=== PATIENT | male | born 1950 | race Hispanic/Latino ===

== ENCOUNTER → 2018-10-09 | Day surgery (SDC) | payer MEDICARE ==
[2018-10-05 16:23] LABS: BASOPHILS # (AUTO) 0.1 (0.0-0.1); BASOPHILS % 0.5 % (0.0-1.0); EOSINOPHILS # (AUTO) 0.2 (0.0-0.4); EOSINOPHILS % 1.4 % (0.0-6.0); HEMATOCRIT 38.6 % (38.2-49.6); HEMOGLOBIN 12.2 g/dL (14.0-18.0); LYMPHOCYTES # (AUTO) 2.8 (1.0-3.2); LYMPHOCYTES % 21.7 % (18.0-39.1); MEAN CORPUSCULAR HEMOGLOBIN 26.3 pg (28-32); MEAN CORPUSCULAR HGB CONC 31.6 g/dL (31-35); MEAN CORPUSCULAR VOLUME 83.4 fL (81-99); MONOCYTES % 7.8 % (4.4-11.3); NEUTROPHILS # (AUTO) 8.9 (2.1-6.9); NEUTROPHILS % 68.1 % (38.7-80.0); PLATELET COUNT 237 x10e3/uL (140-360); RED BLOOD COUNT 4.63 x10e6/uL (4.3-5.7); RED CELL DISTRIBUTION WIDTH 13.7 % (11.7-14.4)
[~2018-10-09] MED LIST: ATORVASTATIN CA40 MG PO; BRIMONIDINE; BRIMONIDINE TART5 ML OP; CLONIDINE HCL0.1 MG PO; DIGOXIN250 MCG; FARXIGA 10MG; FENOFIBRATE160 MG PO; FENOFIBRIC 135 MG; FENTANYL CITRATE/PF 100MCG/2 ML INJ ONE; FLUOXETINE HCL20 MG PO; GABAPENTIN400 MG PO; GLUMETZA1000 MG; HUMALOG KWIKPEN; HUMALOG100 UNIT/1 SQ; HYOSCYAMINE SULFATE 0.5 MG/ML INJ ONE; INVOKAMET PO; KLOR-CON 1010 MEQ PO; LANTUS100 UNITS/ SC; LATANOPROST2.5 ML OP; LINZESS PO; LOSARTAN POTAS100 MG PO; LOSARTAN-HCTZ1 EAC2 PO; LOVAZA1 GM PO; LYRICA50 MG; METOPROLOL TART50 MG PO; MIDAZOLAM HCL 2 MG/2 ML VIAL ONE; MONTELUKAST SOD10 MG PO; OMEGA-31000 MG; OMEPRAZOLE40 MG PO; PROPOFOL IV EMULSION 10 MG/ML 50 ML VIAL ONE; TRAVATAN Z5 ML OP; TRESIBA SQ; VASCEPA PO; VISION VITAMIN1 EAC1 PO; VITAMIN D250000 UNIT PO; WARFARIN; WARFARIN SODIU7.5 MG PO
--- OUTSIDE RECORDS SUMMARY | 2018-10-09 05:23 | XMS REPORT ---
Author Author Suzan Jain Organization [employer] Address Unknown Phone Unavailable Care Team Providers Care Fleet Dispatch Manager Name Role Phone Suzan Jain Unavailable Allergies, Adverse Reactions, Alerts Substance Reaction Event Type N.K.D.A. Info Not Available Non Drug Allergy Problems Problem Type Condition Code Onset Dates Condition Status Assessment Carotid artery disease I77.9 Active Assessment Hypercholesterolemia E78.01 Active Problem Cardiac pacemaker Z95.0 Active Assessment Type II or unspecified type diabetes mellitus with unspecified complication, not stated as uncontrolled E11.8 Active Problem Carotid artery disease I77.9 Active Assessment Abnormal EKG R94.31 Active Problem Type II or unspecified type diabetes mellitus with unspecified complication, not stated as uncontrolled E11.8 Active Problem SANDRA (dyspnea on exertion) R06.09 Active Problem Preoperative clearance Z01.818 Active Problem Chronic atrial fibrillation I48.2 Active Problem Atherosclerosis of [place] artery of right lower extremity with intermittent claudication I70.211 Active Assessment Atherosclerosis of [place] artery of right lower extremity with intermittent claudication I70.211 Active Assessment Varicose veins of bilateral lower extremities with other complications I83.893 Active Problem 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 Assessment Cardiac pacemaker Z95.0 Active Problem Pacemaker generator end of life Z45.010 Active Problem Equivalent angina I20.8 Active Problem Varicose veins of bilateral lower extremities with other complications I83.893 Active Problem Persistent atrial fibrillation I48.1 Active Assessment Benign hypertensive heart disease 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 heart failure I11.9 Active Problem Mitral valve disorder I05.9 Active Assessment Persistent atrial fibrillation I48.1 Active Assessment SANDRA (dyspnea on exertion) R06.09 Active Problem Hypercholesterolemia E78.01 Active Problem Benign hypertensive heart disease 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 heart failure I11.9 Active Problem Abnormal EKG R94.31 Active Problem Atrial fibrillation I48.91 Active Medications Medication Code System Code Instructions Start Date End Date Status Dosage Warfarin Sodium [facility] 91528484875 7.5 MG Orally daily x tory Active 1 tablet Fenofibrate [facility] 09967009465 160 MG Orally Once a day Active 1 tablet with a meal Humalog [facility] 58134024642 100 UNIT/ML Subcutaneous tid qac Active 10 Metoprolol Tartrate [facility] 50596013942 100 mg Orally twice a day (bid) Active 1/2 half tablet Lovaza [facility] 49841890787 1 GM Orally Twice a day Active 2 capsules Atorvastatin Calcium [facility] 28039157740 40 mg Orally Once a day Active 1 tablet Clonidine HCl [facility] 06603501303 0.1 MG Orally as needed (prn) Active 1 tablet at bedtime Lyrica [facility] 23685307500 50 mg Orally once a day Active 1 capsule Amlodipine Besylate [facility] 28977964793 5 MG Orally Once a day Active 1 tablet Tresiba FlexTouch [facility] 86266766631 100 UNIT/ML Subcutaneous QAM Active 48 Losartan Potassium-HCTZ [facility] 34828409632 100-12.5 MG PO Once a day Active 1/2 half tablet Results No Known Results Summary Purpose [employer] Submission
--- OUTSIDE RECORDS SUMMARY | 2018-10-09 05:23 | XMS REPORT ---
Author Author Thao Jain Organization [employer] Address Unknown Phone Unavailable Care Team Providers Care Pantry Worker Name Role Phone Thao Jain CP Unavailable Allergies, Adverse Reactions, Alerts Substance Reaction Event Type N.K.D.A. Info Not Available Non Drug Allergy Problems Problem Type Condition Code Onset Dates Condition Status Assessment Carotid artery disease I77.9 Active Problem Cardiac pacemaker Z95.0 Active Assessment Hypercholesterolemia E78.01 Active Problem Carotid artery disease I77.9 Active Assessment Type II or unspecified type diabetes mellitus with unspecified complication, not stated as uncontrolled E11.8 Active Problem Type II or unspecified type diabetes mellitus with unspecified complication, not stated as uncontrolled E11.8 Active Problem SANDRA (dyspnea on exertion) R06.09 Active Problem Preoperative clearance Z01.818 Active Problem Chronic atrial fibrillation I48.2 Active Problem Atherosclerosis of [place] artery of right lower extremity with intermittent claudication I70.211 Active Assessment Cardiac pacemaker Z95.0 Active Assessment Benign hypertensive heart disease 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 heart failure I11.9 Active Problem 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 Assessment Abnormal EKG R94.31 Active Problem Pacemaker generator end of life Z45.010 Active Problem Equivalent angina I20.8 Active Problem Varicose veins of bilateral lower extremities with other complications I83.893 Active Problem Persistent atrial fibrillation I48.1 Active Assessment Equivalent angina I20.8 Active Problem Mitral valve disorder I05.9 Active Assessment Atrial fibrillation I48.91 Active Assessment SANDRA (dyspnea on exertion) R06.09 Active Problem Hypercholesterolemia E78.01 Active Problem Benign hypertensive heart disease 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 heart failure I11.9 Active Problem Abnormal EKG R94.31 Active Problem Atrial fibrillation I48.91 Active Medications Medication Code System Code Instructions Start Date End Date Status Dosage Lovaza ND 73465257144 1 GM Orally Twice a day Active 2 capsules Digoxin ND 33142531798 125 MCG Orally Once a day Active 1 tablet Lantus ND 65950218624 100 UNIT/ML Subcutaneous sliding scale Active 44 ml Lyrica [facility] 10166486207 50 mg Orally once a day Active 1 capsule Fenofibrate [facility] 56825206263 160 MG Orally Once a day Active 1 tablet with a meal Atorvastatin Calcium [facility] 24725626943 40 mg Orally Once a day Active 1 tablet Metoprolol Tartrate [facility] 00853042855 100 mg Orally twice a day (bid) Active 1/2 half tablet Warfarin Sodium [facility] 69887834016 7.5 MG Orally Once a day Active 1 tablet Humalog [facility] 46635403593 100 UNIT/ML Subcutaneous Active not defined Clonidine HCl [facility] 08620622754 0.1 MG PO twice a day (bid) Active 1 tablet Losartan Potassium-HCTZ [facility] 94905134488 100-12.5 MG PO Once a day Active 1/2 half tablet Vital Signs Date/Time: Dec 21, 2016 BMI 31.15 Index Weight 193 lbs Height 66 in Temperature 97.3 F Cardiac Monitoring Heart Rate 60 /min Blood Pressure Diastolic 70 mm Hg Blood Pressure Systolic 130 mm Hg Results No Known Results Summary Purpose [employer] Submission
--- OUTSIDE RECORDS SUMMARY | 2018-10-09 05:23 | XMS REPORT ---
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 Assessment Cardiac pacemaker Z95.0 Active Problem Pacemaker generator end of life Z45.010 Active Problem Equivalent angina I20.8 Active Problem Varicose veins of bilateral lower extremities with other complications I83.893 Active Problem Persistent atrial fibrillation I48.1 Active Assessment Varicose veins of bilateral lower extremities with other complications I83.893 Active Problem Mitral valve disorder I05.9 Active Assessment Benign hypertensive heart disease 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 heart failure I11.9 Active Assessment Chronic atrial fibrillation I48.2 Active Problem Hypercholesterolemia E78.01 Active Problem Benign hypertensive heart disease 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 heart failure I11.9 Active Problem Abnormal EKG R94.31 Active Problem Atrial fibrillation I48.91 Active Medications Medication Code System Code Instructions Start Date End Date Status Dosage Fenofibrate [facility] 97198783586 160 MG Orally Once a day Active 1 tablet with a meal Lovaza ND 65064960075 1 GM Orally Twice a day Active 2 capsules Amlodipine Besylate [facility] 28842963604 5 MG Orally Once a day Active 1 tablet Warfarin Sodium [facility] 09109420930 7.5 MG Orally daily x monday Active 1 tablet Atorvastatin Calcium [facility] 95274935557 40 mg Orally Once a day Active 1 tablet Tresiba FlexTouch ND 23111559022 100 UNIT/ML Subcutaneous QAM Active 48 Metoprolol Tartrate [facility] 95822198743 100 mg Orally twice a day (bid) Active 1/2 half tablet Clonidine HCl [facility] 29706357468 0.1 MG Orally as needed (prn) Active 1 tablet at bedtime Losartan Potassium-HCTZ [facility] 85293372213 100-12.5 MG PO Once a day Active 1/2 half tablet Humalog [facility] 02264237486 100 UNIT/ML Subcutaneous tid qac Active 10 Lyrica ND 03915314480 50 mg Orally once a day Active 1 capsule Vital Signs Date/Time: January 22, 2018 BMI 32.12 Index Weight 199 lbs Height 66 in Temperature 97.3 F Cardiac Monitoring Heart Rate 60 /min Blood Pressure Diastolic 76 mm Hg Blood Pressure Systolic 118 mm Hg Results No Known Results Summary Purpose [employer] Submission
--- OUTSIDE RECORDS SUMMARY | 2018-10-09 05:23 | XMS REPORT | Continuity of Care Document ---
Author Author [facility] Interface Address Unknown Phone Unavailable Problems Problem Status Onset Date Classification Date Reported Comments Source DX: R10.11=RIGHT UPPER QUADRANT PAIN Active 10/01/2018 [facility] DX: R59.9=ENLARGED LYMPH NODES, UNSPECIF Active 09/13/2018 [facility] DX: R16.0=HEPATOMEGALY, NOT ELSEWHERE CL Active 03/07/2018 [facility] R59.9=ENLARGED LYMPH NODES, UNSPECIFIED Active 02/21/2018 [facility] DX: N18.3=CHRONIC KIDNEY DISEASE, STAGE Active 02/09/2018 [facility] J45.901 Active 02/02/2018 [facility] Pulsatile tinnitus, right ear 01/31/2018 05/02/2018 [facility] H93.A1, H90.3 Active 01/16/2018 [facility] DX:H93.A1=PULSATILE TINNITUS, RIGH Active 12/28/2017 [facility] I73.9 PERIPHERAL VASCULAR DISEASE, UNSPE Active 09/29/2016 [facility] Atrial fibrillation Active Problem 09/20/2014 [facility] HTN heart dis benign, without CHF Active Problem 09/20/2014 [facility] Chest pain Active Problem 09/20/2014 [facility] Hypercholesterolemia Active Problem 09/20/2014 [facility] Diabetes with unspecified complication, type II or unspecified type, not stated as uncontrolled Active Problem 09/20/2014 [facility] Cardiac pacemaker in situ Active Problem 09/20/2014 [facility] Mitral valve disorders Active Problem 09/20/2014 [facility] Carotid artery disease Active Diagnosis 07/11/2018 [facility] Cardiac pacemaker Active Problem 07/11/2018 [facility] Hypercholesterolemia Active Diagnosis 07/11/2018 [facility] J[facility] Type II or unspecified type diabetes mellitus with unspecified complication, not stated as uncontrolled Active Diagnosis 07/11/2018 [facility] Jain SANDRA Active Problem 07/11/2018 [facility] Preoperative clearance Active Problem 07/11/2018 [facility] Chronic atrial fibrillation Active Problem 07/11/2018 [facility] 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 Active Problem 07/11/2018 [facility] Benign hypertensive heart disease 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 heart failure Active Diagnosis 07/11/2018 Thao Jain Status post ablation of incompetent vein using laser Active Problem 07/11/2018 [facility] Abnormal EKG Active Diagnosis 07/11/2018 [facility] Pacemaker generator end of life Active Problem 07/11/2018 [facility] Equivalent angina Active Problem 07/11/2018 [facility] Varicose veins of bilateral lower extremities with other complications Active Problem 07/11/2018 [facility] Jain Persistent atrial fibrillation Active Problem 07/11/2018 [facility] Mitral valve disorder Active Problem 07/11/2018 [facility] Atrial fibrillation Active Problem 07/11/2018 Thao Jain Type 2 diabetes mellitus with diabetic peripheral angiopathy without gangrene, without long-term current use of insulin Active Problem 11/10/2016 [facility] Ingrown toenail Active Problem 11/10/2016 [facility] Peripheral arterial disease Active Problem 11/10/2016 [facility] Diabetic mononeuropathy associated with type 2 diabetes mellitus Active Problem 11/10/2016 [facility] Sensorineural hearing loss, bilateral 05/02/2018 [facility] Abnormal findings on diagnostic imaging of other specified body structures 04/17/2018 [facility] Occlusion and stenosis of left carotid artery 04/17/2018 [facility] PERIPHERAL VASCULAR DISEASE, UNSPECIFIED Active [facility] PULSATILE TINNITUS, RIGHT EAR Active [facility] SENSORINEURAL HEARING LOSS, BILATERAL Active [facility] COUGH Active [facility] SHORTNESS OF BREATH Active [facility] UNSPECIFIED ASTHMA WITH (ACUTE) EXACERBA Active [facility] SOLITARY PULMONARY NODULE Active [facility] Medications Medication Details Route Status Patient Instructions Ordering Provider Order Date Source Amlodipine Besylate 1 tablet Orally Active 5 MG Orally Once a day Cristobal 06/14/2017 Thao Jain Clonidine HCl 1 tablet Orally Active 0.1 MG Orally Once a day Cristobal Jain Warfarin Sodium 1 tablet Orally Active 7.5 MG Orally Once a day Cristobal Jain Lovaza 2 capsules Orally Active 1 GM Orally Twice a day Cristobal Jain Digoxin 1 tablet Orally Active 125 MCG Orally Once a day Cristobal Jain Lantus 44 ml Subcutaneous Active 100 UNIT/ML Subcutaneous sliding scale Cristobal Jain Lyrica 1 capsule Orally Active 50 mg Orally once a day Cristobal Jain Fenofibrate 1 tablet with a meal Orally Active 160 MG Orally Once a day Cristobal Jain Atorvastatin Calcium 1 tablet Orally Active 40 mg Orally Once a day Cristobal Jain Metoprolol Tartrate 1/2 half tablet Orally Active 100 mg Orally twice a day (bid) Cristobal Jain Warfarin Sodium 1 tablet Orally Active 7.5 MG Orally Once a day Cristobal Jain Humalog 10 Subcutaneous Active 100 UNIT/ML Subcutaneous tid qac Cristobal Jain Clonidine HCl 1 tablet at bedtime Orally Active 0.1 MG Orally as needed (prn) Cristobal Jain Losartan Potassium-HCTZ 1/2 half tablet PO Active 100-12.5 MG PO Once a day Cristobal Jain Warfarin Sodium 1 tablet Orally Active 7.5 MG Orally daily x monday Cristobal Jain Digoxin 1 tablet Orally Active 250 MCG Orally QOD Cristobal Jain Amlodipine Besylate 1 tablet Orally Active 5 MG Orally Once a day Cristobal Jain Tresiba FlexTouch 48 Subcutaneous Active 100 UNIT/ML Subcutaneous QAM Cristobal Jain Metoprolol Tartrate 1 tablet Orally Active 100 mg Orally BID Cristobal Jain Digoxin 1 tablet Orally Active 0.25 MG Orally Once a day Irvingsusu Jain Allergies, Adverse Reactions, Alerts Substance Category Reaction Severity Reaction type Status Date Reported Comments Source N.K.D.A. Adverse Reaction Info Not Available Adverse Reaction Active 01/22/2018 [facility] Jain Immunizations Immunization Date Given Site Status Last Updated Comments Source Results Order Name Results Value Reference Range Date Interpretation Comments Source Chest wo contrast CT Chest wo contrast CT CT CHEST WITHOUT CONTRAST: HISTORY: Lymph node enlargement. TECHNIQUE: Multislice axial acquisitions were done through the chest without contrast. Sagittal and coronal reformatted images were also obtained. DLP 354 mGycm. FINDINGS: There is a mildly enlarged lymph node in the pretracheal region, measuring about 2.5 cm just above the niaf. There is no significant change compared to the previous CT on 02/09/2018. There is no other significant mediastinal or hilar lymph node enlargement. There is no evidence of extrathoracic lymph node enlargement. Atherosclerotic calcifications in the aorta and coronary arteries are noted. Right subclavian pacemaker lead is seen in satisfactory position There are no significant pulmonary or pleural abnormalities. There are no significant osseous abnormalities. There are no significant abnormalities in the visible upper abdomen. IMPRESSION: 1. Stable nonspecific pretracheal adenopathy. 2. No other significant intrathoracic or extrathoracic lymph node enlargement. 3. No other acute CT abnormalities of the chest [id number] 09/17/2018 - - Read by: Saurabh Winters MD Dictated Date/time: 09/17/18 16:49 Electronically Signed by: Saurabh Winters MD 09/17/18 16:57 FINAL REPORT [facility] Retroperitoneal complete w Doppler US Retroperitoneal complete w Doppler US Patient Name: ANSON FRANK : 1950 Age: 67 years, Male MR: [id number] Study: Bladder US, Retroperitoneal complete w Doppler US 04/02/2018 3:47 PM CDT Examination: Renal ultrasound with Doppler. Bladder ultrasound Indication: Chronic renal disease Clinical information: N18.3 Chronic kidney disease, stage 3 (moderate) - N18.3 Chronic kidney disease, stage 3 (moderate). Comparison: None Technique: Transverse and longitudinal images of the kidneys and bladder were obtained. Doppler evaluation of the renal arteries was performed. Findings: Right kidney: Length 10.6 x 5.28 x 5.33 cm. Cortex 1.74 cm. Echogenicity: Normal Collecting system: No echogenic calculi. No hydronephrosis. Cyst/mass: None RIGHT Kidney Doppler MRA/AO Ratio (<3.5): 1.29 MRA (hilum): 94.3 AO: 73.3 Resistive Index (<7.0) Superior: 0.68 Mid: 0.78 Inferior: 0.8 Left kidney: Length 11.1 x 4.94 x 4.17 cm. Cortex 1.65 cm. Echogenicity: Normal Collecting system: No echogenic calculi. No hydronephrosis. Cyst/mass: None LEFT Kidney Doppler MRA/AO Ratio (<3.5): 0.74 MRA (hilum): 54.4 AO: 73.3 Resistive Index (<7.0) Superior: 0.8 Mid: 0.76 Inferior: 0.69 Urinary bladder Normal contour. The ureteral jets are visualized bilaterally. Prevoid Volume 75.5 cc Postvoid Volume 12.8 cc Aorta: Proximal: 2.34 cm. Mid 1.74 cm. Distal 1.66 cm. Aortic bifurcation is poorly visualized. No aneurysm is identified. Inferior vena cava: Patent. 1.63 cm. Ascites: None IMPRESSION: No acute radiographic abnormality. SL: [id number] 04/02/2018 - - Read by: Zion Mahmood MD Dictated Date/time: 04/03/18 07:25 Electronically Signed by: Zion Mahmood MD 04/03/18 07:46 FINAL REPORT [facility] Bladder US Bladder US Patient Name: ANSON FRANK : 1950 Age: 67 years, Male MR: [id number] Study: Bladder US, Retroperitoneal complete w Doppler US 04/02/2018 3:47 PM CDT Examination: Renal ultrasound with Doppler. Bladder ultrasound Indication: Chronic renal disease Clinical information: N18.3 Chronic kidney disease, stage 3 (moderate) - N18.3 Chronic kidney disease, stage 3 (moderate). Comparison: None Technique: Transverse and longitudinal images of the kidneys and bladder were obtained. Doppler evaluation of the renal arteries was performed. Findings: Right kidney: Length 10.6 x 5.28 x 5.33 cm. Cortex 1.74 cm. Echogenicity: Normal Collecting system: No echogenic calculi. No hydronephrosis. Cyst/mass: None RIGHT Kidney Doppler MRA/AO Ratio (<3.5): 1.29 MRA (hilum): 94.3 AO: 73.3 Resistive Index (<7.0) Superior: 0.68 Mid: 0.78 Inferior: 0.8 Left kidney: Length 11.1 x 4.94 x 4.17 cm. Cortex 1.65 cm. Echogenicity: Normal Collecting system: No echogenic calculi. No hydronephrosis. Cyst/mass: None LEFT Kidney Doppler MRA/AO Ratio (<3.5): 0.74 MRA (hilum): 54.4 AO: 73.3 Resistive Index (<7.0) Superior: 0.8 Mid: 0.76 Inferior: 0.69 Urinary bladder Normal contour. The ureteral jets are visualized bilaterally. Prevoid Volume 75.5 cc Postvoid Volume 12.8 cc Aorta: Proximal: 2.34 cm. Mid 1.74 cm. Distal 1.66 cm. Aortic bifurcation is poorly visualized. No aneurysm is identified. Inferior vena cava: Patent. 1.63 cm. Ascites: None IMPRESSION: No acute radiographic abnormality. SL: [id number] 04/02/2018 - - Read by: Zion Mahmood MD Dictated Date/time: 04/03/18 07:25 Electronically Signed by: Zion Mahmood MD 04/03/18 07:46 FINAL REPORT [facility] PET CT Lymphoma diagnosis PET CT Lymphoma diagnosis Patient Name: ANSON FRANK : 1950; Age: 67 years Male MR: [id number] Study: PET CT Lymphoma diagnosis 03/17/2018 11:00 AM CDT Clinical Indication: R59.9 Enlarged lymph nodes, unspecified; R91.1 Solitary pulmonary nodule--Diagnosis Dose: VPV=600.25 mGy*cm ; CTDIvol=10.34 mGy COMPARISON: February 09, [address] TECHNIQUE: Positron emission tomography imaging is performed 45 minutes after intravenous administration of 14.3 mCi of F-18 labeled FDG, from the skull base to the mid thigh region. PET images were reviewed in the axial, coronal and sagittal orthogonal projections. Non-contrast enhanced CT imaging was for performed for attenuation correction, localization and limited diagnostic purposes. INJECTION SITE: Right arm injection site Serum glucose: 116 mg/dL. FINDINGS: NECK: There are no foci of abnormal metabolic activity. CHEST: Subcentimeter AP window, upper and lower paratracheal lymph nodes. Central lower paratracheal lymph node complex, image 79, 2.6 cm, SUV 1.6. Cardiomegaly with coronary artery calcifications. ABDOMEN: There are no foci of abnormal metabolic activity. PELVIS: There are no foci of abnormal metabolic activity. Sigmoid diverticulosis. BONES: There are no foci of abnormal metabolic activity. Physiologic F-18 labeled FDG distribution is noted in the brain, heart, liver, spleen, gastrointestinal and genitourinary tracts. IMPRESSION: 1. Mediastinal lymphadenopathy with SUV up to 1.6. FDG PET is known to show little to no uptake in malignant disease with low metabolic activity including bronchoalveolar carcinoma (renamed adenocarcinoma in situ, minimally invasive adenocarcinoma) or carcinoid. There are studies showing malignant pleural mesothelioma with SUV values ranging from less than 1 to greater than 12 depending on metabolic activity of the tumor. SL: [id number] 03/17/2018 - - Read by: Dima Dowell MD Dictated Date/time: 03/19/18 11:11 Electronically Signed by: Dima Dowell MD 03/19/18 11:21 FINAL REPORT [facility] Liver US Liver US Patient Name: ANSON FRANK : 1950; Age: 67 years Male MR: [id number] Study: Liver US 03/15/2018 8:26 AM CDT Clinical Indication: - R16.0 Hepatomegaly, not elsewhere classified. COMPARISON: None TECHNIQUE: Grayscale and limited color sonographic evaluation of the right upper quadrant of the abdomen and gallbladder region was performed with standard technique. FINDINGS: LIVER: The visualized liver shows normal contour, size, and morphology. There is increased parenchymal echotexture. BILE DUCTS: The intrahepatic and extrahepatic bile ducts are not dilated. The common bile duct measures 3.8 mm. The distal common bile duct is not well seen. GALLBLADDER: There are no gallstones, gallbladder sludge, pericholecystic fluid or wall thickening. PANCREAS: The pancreas body is normal. The head and tail are obscured by bowel gas. KIDNEY: The right kidney measures 10.7 x 5.1 x 4.6 cm. The renal cortical thickness measures 1.6 cm. There is normal renal contour and morphology, with normal parenchymal echotexture. There is no hydronephrosis. ASCITES: There is no right upper quadrant abdominal ascites. IMPRESSION: Hepatocellular disease most likely due to fatty infiltration. SL: [id number] 03/15/2018 - - Read by: Dima Dowell MD Dictated Date/time: 03/15/18 08:58 Electronically Signed by: Dima Dowell MD 03/15/18 09:01 FINAL REPORT [facility] Chest wo contrast CT Chest wo contrast CT Clinical Indication: - R05 Cough, R06.02 Shortness of breath, J45.901 Unspecified asthma with (acute) exacerbation; Comparison: None TECHNIQUE: Sequential trans-axial images were obtained thru the chest and upper abdomen without intravenous contrast. Coronal and sagittal reconstructions were obtained. Dose: ZZZ=306 mGy-cm FINDINGS: LOWER NECK AND SOFT TISSUES: No enlarged lymph node is seen. Right subclavian pacing device leads are in the right heart. MEDIASTINUM: Normal size of the heart is noted. Coronary artery calcifications are noted. No pericardial effusion is identified. The thoracic aorta is normal in caliber. Precarinal soft tissue density on series 3, image 36 measures 2.6 x 1.6 cm. No hilar or axillary lymphadenopathy is noted. PULMONARY PARENCHYMA: No focal consolidation or pleural effusion is seen. No pulmonary nodule or mass is apparent. No pneumothorax is identified UPPER ABDOMEN: Visualized upper abdominal structures are unremarkable in appearance. MUSCULOSKELETAL: No acute osseous abnormality is seen. No destructive lytic or blastic osseous lesion is noted. IMPRESSION: 1. No acute abnormality of the chest. 2. Indeterminate precarinal soft tissue density measuring 2.6 x 1.6 cm. PET/CT or short-term follow-up CT chest with contrast are available for further evaluation. 3. Coronary artery calcifications. SL: [id number] 02/09/2018 - - Read by: Wilfrid Hidalgo MD Dictated Date/time: 02/09/18 14:06 Electronically Signed by: Wilfrid Hidalgo MD 02/09/18 14:12 FINAL REPORT [employer] CHEM PANEL eGFR 47 mL/min/1.73m2 01/24/2018 Result Comment: The eGFR is calculated using the CKD-EPI formula. In most young, healthy individuals the eGFR will be >90 mL/min/1.73m2. The eGFR declines with age. An eGFR of 60-89 may be normal in some populations, particularly the elderly, for whom the CKD-EPI formula has not been extensively validated. Use of the eGFR is not recommended in the following populations: Individuals with unstable creatinine concentrations, including patients and those with serious co-morbid conditions. Patients with extremes in muscle mass or diet. The data above are obtained from the National Kidney Disease Education Program (NKDEP) which additionally recommends that when the eGFR is used in patients with extremes of body mass index for purposes of drug dosing, the eGFR should be multiplied by the estimated BMI. [employer] CHEM PANEL POC Creatinine 1.5 mg/dL 0.5 - 1.4 01/24/2018 [facility] Neck CTA Neck CTA Clinical Indication: - H90.3 Sensorineural hearing loss, bilateral Comparison: None TECHNIQUE: Sequential trans-axial images of the neck were obtained with a multi- detector helical CT after iodinated contrast administration. Coronal and sagittal reconstructions and were obtained, along with 3D post-processing maximum intensity projection imaging for exam interpretation. CONTRAST: 75 cc of IV Visipaque contrast material was used for the exam. CT Radiation Dose DLP 323 mGy-cm FINDINGS: CTA NECK: VASCULAR EVALUATION: The origins of the great vessels and visualized upper thoracic aortic arch are unremarkable. The right common carotid artery is widely patent. The right carotid bulb region is unremarkable. The internal and external carotid arteries on the right are widely patent. The right cervical internal carotid artery is widely patent. The left common carotid artery is widely patent. The left carotid bulb region is unremarkable. The internal and external carotid arteries on the left are widely patent. The left cervical internal carotid artery is widely patent. Bilateral cervical segments of the vertebral arteries are widely patent. The source images show no evidence of dissections. If there is further concern, recommend conventional angiography for complete assessment. Any reported ICA stenosis directly references the distal internal carotid diameter as the denominator for stenosis measurement. NON-VASCULAR STRUCTURES: The nonvascular soft tissues of the neck are unremarkable. IMPRESSION: Unremarkable CT angiography neck. No significant stenosis by NASCET criteria. SL: [id number] 01/24/2018 - - Read by: Paul Sullivan MD Dictated Date/time: 01/24/18 13:58 Electronically Signed by: Paul Sullivan MD 01/24/18 14:12 FINAL REPORT [facility] Internal Auditory Canal wo contrast CT Internal Auditory Canal wo contrast CT EXAM: CT TEMPORAL BONE WITHOUT CONTRAST DATE: 01/09/2018 2:04 PM CDT INDICATION: Pulsatile tinnitus of right ear COMPARISON: None TECHNIQUE: Axial noncontrast CT images of the temporal bone, with coronal and sagittal reformats IV contrast: None. CT Radiation Dose DLP: 363 mGy-cm. DLP means Dose Length Product, a radiation dose metric that does not report individual patient dose, but is a reference value related to the radiation output of the scanner used for this exam. FINDINGS: RIGHT AND LEFT: Mastoid air cells are well developed and aerated. External auditory canal is patent and normal caliber. The middle ear cavity is well pneumatized and clear. The scutum is intact. Ossicular chain is normal. Tegmen tympani and mastoideum are intact. Cochlea, vestibule and semicircular canals appear normal. The roof of the superior semicircular canal is intact. Normal course and caliber of the internal auditory and facial nerve canals. Vestibular aqueduct is not enlarged. Carotid canal and jugular bulb are unremarkable. Incidental note is made of vascular calcifications of the vessels in the superficial soft tissues of the scalp. IMPRESSION: Normal CT of the temporal bones. 01/09/2018 - - Read by: Kevin Farr MD Dictated Date/time: 01/09/18 14:55 Electronically Signed by: Kevin Farr MD 01/09/18 14:59 FINAL REPORT [facility] Carotid artery Doppler bilat US Carotid artery Doppler bilat US Clinical Indication: - PULSATILE TINNITUS OF RIGHT EAR; Comparison: None TECHNIQUE: Rao-scale, color Doppler and spectral Doppler of the carotid arteries was performed. Any reported ICA stenoses indirectly reference the distal internal carotid diameter as the denominator for the stenosis measurement, utilizing consensus panel criteria. FINDINGS: RIGHT: No significant plaque ICA PSV 105 cm/sec CCA PSV 127 cm/sec ICA/CCA ratio 0.82 Vertebral flow is antegrade. External carotid artery is patent. LEFT: Multifocal areas of stenosis are visualized within the left internal carotid artery ICA PSV 56 cm/sec CCA PSV 105 cm/sec ICA/CCA ratio 0.53 Vertebral flow is antegrade. External carotid artery is patent. IMPRESSION: 1. RIGHT: ICA stenosis <50 % by velocity criteria. 2. LEFT: Multifocal regions of stenosis giving a false reading of flow are visualized. CTA of the neck arteries is suggested. Consensus panel Doppler US criteria for diagnosis of ICA stenosis: Stenosis (%) ICA PSV (cm/sec) ICA/CCA ratio <50 <125 <2.0 50-69 125-230 2.0-4.0 >70 but less than >230 >4.0 near occlusion Near occlusion High, low, or Variable undetectable SL: [id number] 01/09/2018 - - Read by: Adan Bush MD Dictated Date/time: 01/09/18 15:06 Electronically Signed by: Adan Bush MD 01/09/18 15:08 FINAL REPORT [facility] Ext Lower Arterial bilat w pressure US Ext Lower Arterial bilat w pressure US Please refer to the heart lab report, located under vascular in [facility]ARE[facility]. 10/03/2016 - - Electronically Signed by: Saran Charles 10/05/16 08:58 FINAL REPORT [facility] Vital Signs Vital Sign Value Date Comments Source Weight 199 01/22/2018 [facility] Height 66 01/22/2018 [facility] Temperature Oral (F) 97.3 F 01/22/2018 [facility] Heart Rate 60 01/22/2018 [facility] Diastolic (mm Hg) 76 01/22/2018 [facility] Systolic (mm Hg) 118 01/22/2018 [facility] Weight 200 12/21/2017 [facility] Height 66 12/21/2017 [facility] Temperature Oral (F) 96.9 F 12/21/2017 [facility] Heart Rate 60 12/21/2017 [facility] Diastolic (mm Hg) 70 12/21/2017 [facility]i Systolic (mm Hg) 122 12/21/2017 [facility] Weight 194 08/28/2017 Moh[facility] O Jer[facility]i Height 66 08/28/2017 Moh[facility] O [facility]i Temperature Oral (F) 97.1 F 08/28/2017 [facility] Heart Rate 60 08/28/2017 [facility] Diastolic (mm Hg) 80 08/28/2017 [facility] O [facility]i Systolic (mm Hg) 122 08/28/2017 [facility] Weight 192 06/14/2017 [facility] O [facility]i Height 66 06/14/2017 Moh[facility] O Jeroudi Temperature Oral (F) 98 F 06/14/2017 Moh[facility] O Jeroudi Heart Rate 70 06/14/2017 Moh[facility] O Jeroudi Diastolic (mm Hg) 80 06/14/2017 Mohamed O Jeroudi Systolic (mm Hg) 140 06/14/2017 [facility] Campoverdesus[facility] Weight 193 12/21/2016 Thao Villatorooudi Height 66 12/21/2016 Thao Corin Jain Temperature Oral (F) 97.3 F 12/21/2016 Thao Corin Jain Heart Rate 60 12/21/2016 Thao O Cristobal Diastolic (mm Hg) 70 12/21/2016 Katamed Corin Jain Systolic (mm Hg) 130 12/21/2016 Thao Vill[place] Weight 194 11/29/2016 Thao Villatorooudi Height 66 11/29/2016 Thao O Irvingoudi Temperature Oral (F) 97.6 F 11/29/2016 Thao Corin Jain Heart Rate 54 11/29/2016 Katjodee Corin Jain Diastolic (mm Hg) 80 11/29/2016 Thao Corin [place] Systolic (mm Hg) 134 11/29/2016 Thao Jain Encounters Location Location Details Encounter Type Encounter Number Reason For Visit Attending Provider ADM Date DC Date Status Source MD MORIAH Contreras Unknown [id number] 07/14/2014 07/14/2014 MD MORIAH Vidal Unknown [id number] 07/14/2014 07/14/2014 MD MORIAH Vidal Unknown [id number] 07/14/2014 07/14/2014 MD MORIAH Vidal Unknown [id number] 07/14/2014 07/14/2014 [facility] MD MORIAH Contreras Unknown [id number] 07/14/2014 07/14/2014 MD MORIAH Vidal Unknown [id number] 07/31/2014 07/31/2014 MD MORIAH Vidal Unknown [id number] 07/31/2014 07/31/2014 MD MORIAH Vidal Unknown [id number] 07/31/2014 07/31/2014 [facility] MD MORIAH Contreras Unknown [id number] 07/31/2014 07/31/2014 MD MORIAH Vidal Unknown [id number] 09/19/2014 09/19/2014 MD MORIAH Vidal Unknown [id number] 09/19/2014 09/19/2014 [facility] MD MORIAH Contreras Unknown [id number] 09/19/2014 09/19/2014 MD MORIAH Vidal Unknown [id number] 10/27/2014 10/27/2014 MD MORIAH Vidal Unknown [id number] 10/27/2014 10/27/2014 [facility] MD MORIAH Contreras Unknown [id number] 01/06/2015 01/06/2015 [facility] MD MORIAH Contrersa Unknown [id number] 01/06/2015 01/06/2015 [facility] Outpatient [id number] Galileo Kingett 10/03/2016 10/04/2016 [facility] results [id number] 11/08/2016 11/08/2016 [facility] Outpatient [id number] Kalli Almanza 01/09/2018 01/10/2018 [facility] Outpatient [id number] Kalli Almanza 01/24/2018 01/25/2018 [facility] Outpatient [id number] Rudi Garrett 02/09/2018 02/10/2018 [facility] Outpatient [id number] Rosemary Smith 03/15/2018 03/16/2018 [facility] Outpatient [id number] Rudi Garrett 03/17/2018 03/18/2018 [facility] Outpatient [id number] Stephon Berg 04/02/2018 04/03/2018 [facility] Procedures Procedure Code Date Perfomer Comments Source
--- OUTSIDE RECORDS SUMMARY | 2018-10-09 05:24 | XMS REPORT ---
Author Author Suzan Jain Organization [employer] Address Unknown Phone Unavailable Care Team Providers Care Cloud Developer Name Role Phone Suzan Jain Unavailable Allergies, [...] atrial fibrillation I48.2 Active Problem Atherosclerosis of [place] artery of right lower extremity with intermittent claudication I70.211 Active Assessment Benign hypertensive heart disease 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 heart failure I11.9 Active Assessment Varicose veins of bilateral lower extremities with other complications I83.893 Active Problem 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 Assessment Cardiac pacemaker Z95.0 Active Problem Pacemaker generator end of life Z45.010 Active Problem Equivalent angina I20.8 Active Problem Varicose veins of bilateral lower extremities with other complications I83.893 Active Problem Persistent atrial fibrillation I48.1 Active Assessment Atherosclerosis of [place] artery of right lower extremity with intermittent claudication I70.211 Active Problem Mitral valve disorder I05.9 Active Assessment SANDRA (dyspnea on exertion) R06.09 Active Assessment Persistent atrial fibrillation I48.1 Active Problem Hypercholesterolemia E78.01 Active Problem Benign hypertensive heart disease 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 heart failure I11.9 Active Problem Abnormal EKG R94.31 Active Problem Atrial fibrillation I48.91 Active Medications Medication Code System Code Instructions Start Date End Date Status Dosage Metoprolol Tartrate [facility] 66254832504 100 mg Orally twice a day (bid) Active 1/2 half tablet Humalog [facility] 54654882103 100 UNIT/ML Subcutaneous tid qac Active 10 Warfarin Sodium [facility] 01631424491 7.5 MG Orally Once a day five days per week, half tablet on Monday and Monday Active 1 tablet Atorvastatin Calcium [facility] 99294727723 40 mg Orally Once a day Active 1 tablet Losartan Potassium-HCTZ [facility] 14190261055 100-12.5 MG PO Once a day Active 1 tablet Lantus ND 58912072476 100 UNIT/ML Subcutaneous sliding scale Active 44 ml Tresiba FlexTouch [facility] 90384495275 100 UNIT/ML Subcutaneous QAM Active 48 Lyrica [facility] 39068639473 50 mg Orally once a day Active 1 capsule Fenofibrate [facility] 98874168158 160 MG Orally Once a day Active 1 tablet with a meal Lovaza [facility] 67786240285 1 GM Orally Twice a day Active 2 capsules Amlodipine Besylate [facility] 54080969809 5 MG Orally Once a day Active 1 tablet Vital Signs Date/Time: Aug 28, 2017 BMI 31.31 Index Weight 194 lbs Height 66 in Temperature 97.1 F Cardiac Monitoring Heart Rate 60 /min Blood Pressure Diastolic 80 mm Hg Blood Pressure Systolic 122 mm Hg Results No Known Results Summary Purpose eClinicalWorks Submission
--- OUTSIDE RECORDS SUMMARY | 2018-10-09 05:24 | XMS REPORT | Summary of Care ---
Author Author [facility] Organization [facility] Address Unknown Phone Unavailable Encounter HQ Encntr_alias(FIN) [id number] Date(s): 02/09/18 - 02/09/18 [facility] [address] [place] [address]- Discharge Disposition: Home or Self Care Attending Physician: Rudi Garrett MD Referring Physician: Rudi Garrett MD Vital Signs No data available for this section Problem List No data available for this section Allergies, Adverse Reactions, Alerts No data available for this section Medications No data available for this section Results No data available for this section Immunizations No data available for this section Procedures No data available for this section Social History No data available for this section Assessment and Plan No data available for this section
--- OUTSIDE RECORDS SUMMARY | 2018-10-09 05:24 | XMS REPORT | Summary of Care ---
Author Author [facility] Organization [facility] Address Unknown Phone Unavailable Encounter HQ Encntr_alias(FIN) [id number] Date(s): 04/02/18 - 04/02/18 [facility] [address] [place] [address]- Discharge Disposition: Home or Self Care Attending Physician: Stephon Berg MD Referring Physician: Stephon Berg MD Vital Signs No data available for [...]
--- OUTSIDE RECORDS SUMMARY | 2018-10-09 05:24 | XMS REPORT ---
Author Author Thao Jain Organization [employer] Address Unknown Phone Unavailable Care Team Providers Care Master Brewer Name Role Phone Thao Jain CP Unavailable Encounters Encounter Location Date Unknown Thao Jain [place] Jul 14, 2014 Problems Problem Type Condition ICD-9 Code Onset Dates Condition Status Problem Atrial fibrillation 427.31 Active Problem HTN heart dis benign, without CHF 402.10 Active Problem Chest pain 786.50 Active Problem Hypercholesterolemia 272.0 Active Problem Diabetes with unspecified complication, type II or unspecified type, not stated as uncontrolled 250.90 Active Problem Cardiac pacemaker in situ V45.01 Active Problem Mitral valve disorders 424.0 Active Medications Medication Code System Code Instructions Start Date End Date Status Dosage Clonidine HCl [facility] [address]-64 0.1 MG Orally Once a day Active 1 tablet Warfarin Sodium [facility] [address]-90 7.5 MG Orally Once a day Active 1 tablet Social History Social History Element Qualifiers Date Reported Smoking . Status Never Smoker February 26, 2014 Alcohol Use Yes. Occasionally February 26, 2014 Alcohol Screening: Yes. February 26, 2014 Marital Status: . February 26, 2014 Do you drink alcohol? Yes. 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
--- OUTSIDE RECORDS SUMMARY | 2018-10-09 05:24 | XMS REPORT ---
Author Author Thao Jain Organization [employer] Address Unknown Phone Unavailable Care Team Providers Care Criminalist Technician Name Role Phone Thao Jain CP Unavailable [...] atrial fibrillation I48.2 Active Problem Atherosclerosis of [place] artery of right lower extremity with intermittent claudication I70.211 Active Assessment SANDRA (dyspnea on exertion) R06.09 Active Assessment Atherosclerosis of [place] artery of right lower extremity with intermittent [...] Instructions Start Date End Date Status Dosage Humalog [facility] 44011303703 100 UNIT/ML Subcutaneous tid qac Active 10 Metoprolol Tartrate ND 67024918626 100 mg Orally twice a day (bid) Active 1/2 half tablet Lovaza [facility] 08494671893 1 GM Orally Twice a day Active 2 capsules Fenofibrate [facility] 70541498528 160 MG Orally Once a day Active 1 tablet with a meal Losartan Potassium-HCTZ [facility] 19563185146 100-12.5 MG PO Once a day Active 1/2 half tablet Clonidine HCl [facility] 08002569820 0.1 MG Orally as needed (prn) Active 1 tablet at bedtime Tresiba FlexTouch [facility] 59039554492 100 UNIT/ML Subcutaneous QAM Active 48 Lyrica [facility] 70820424552 50 mg Orally once a day Active 1 capsule Atorvastatin Calcium [facility] 89808271406 40 mg Orally Once a day Active 1 tablet Warfarin Sodium [facility] 61950139442 7.5 MG Orally daily x monday Active 1 tablet Amlodipine Besylate [facility] 28965963556 5 MG Orally Once a day Active 1 tablet Vital Signs Date/Time: Dec 21, 2017 BMI 32.28 Index Weight 200 lbs Height 66 in Temperature 96.9 F Cardiac Monitoring Heart Rate 60 /min Blood Pressure Diastolic 70 mm Hg Blood Pressure Systolic 122 mm Hg Results No Known Results Summary Purpose eClinicalWorks Submission
--- OUTSIDE RECORDS SUMMARY | 2018-10-09 05:24 | XMS REPORT ---
Author Author Suzan Jain Organization [employer] Address Unknown Phone Unavailable Care Team Providers Care Commercial Tire Service Technician Name Role Phone Suzan Jain Unavailable Allergies, Adverse Reactions, Alerts Substance Reaction Event Type N.K.D.A. Info Not Available Non Drug Allergy Problems Problem Type Condition Code Onset Dates Condition Status Assessment Carotid artery disease I77.9 Active Assessment Hypercholesterolemia E78.01 Active Problem Cardiac pacemaker Z95.0 Active Assessment Varicose veins of bilateral lower extremities with other complications I83.893 Active Problem Carotid artery disease I77.9 Active Assessment Type II or unspecified type diabetes mellitus with unspecified complication, not stated as uncontrolled E11.8 Active Problem Type II or unspecified type diabetes mellitus with unspecified complication, not stated as uncontrolled E11.8 Active Problem SANDRA (dyspnea on exertion) R06.09 Active Problem Preoperative clearance Z01.818 Active Problem Chronic atrial fibrillation I48.2 Active Problem Atherosclerosis of [place] artery of right lower extremity with intermittent claudication I70.211 Active Assessment Benign hypertensive heart disease 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 heart failure I11.9 Active Assessment Cardiac pacemaker Z95.0 Active Problem 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 Assessment Abnormal EKG R94.31 Active Problem Pacemaker generator end of life Z45.010 Active Problem Equivalent angina I20.8 Active Problem Varicose veins of bilateral lower extremities with other complications I83.893 Active Problem Persistent atrial fibrillation I48.1 Active Assessment Persistent atrial fibrillation I48.1 Active Problem Mitral valve disorder I05.9 Active Assessment SANDRA (dyspnea on exertion) R06.09 Active Assessment Pacemaker generator end of life Z45.010 Active Problem Hypercholesterolemia E78.01 Active Problem Benign hypertensive heart disease 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 heart failure I11.9 Active Problem Abnormal EKG R94.31 Active Problem Atrial fibrillation I48.91 Active Medications Medication Code System Code Instructions Start Date End Date Status Dosage Humalog ND 65162498645 100 UNIT/ML Subcutaneous tid qac Active 10 Warfarin Sodium ND 47098913500 7.5 MG Orally Once a day except on Monday half a tablet Active 1 tablet Clonidine HCl [facility] 89232430877 0.1 MG PO QHS Inactive 1 tablet Losartan Potassium-HCTZ [facility] 81811149725 100-12.5 MG PO Once a day Active 1 tablet Atorvastatin Calcium [facility] 45077972884 40 mg Orally Once a day Active 1 tablet Lovaza [facility] 92063409115 1 GM Orally Twice a day Active 2 capsules Lyrica [facility] 31679228581 50 mg Orally once a day Active 1 capsule Amlodipine Besylate [facility] 60320020042 5 MG Orally Once a day Jun 14, 2017 Active 1 tablet Digoxin [facility] 11807357780 250 MCG Orally QOD Inactive 1 tablet Lantus [facility] 70232459653 100 UNIT/ML Subcutaneous sliding scale Active 44 ml Fenofibrate [facility] 77462419386 160 MG Orally Once a day Active 1 tablet with a meal Metoprolol Tartrate [facility] 39116577483 100 mg Orally twice a day (bid) Active 1/2 half tablet Vital Signs Date/Time: Jun 14, 2017 BMI 30.99 Index Weight 192 lbs Height 66 in Temperature 98 F Cardiac Monitoring Heart Rate 70 /min Blood Pressure Diastolic 80 mm Hg Blood Pressure Systolic 140 mm Hg Results No Known Results Summary Purpose eClinicalWorks Submission
--- OUTSIDE RECORDS SUMMARY | 2018-10-09 05:24 | XMS REPORT ---
Author Author Thao Jani Organization [employer] Address Unknown Phone Unavailable Care Team Providers Care Accounts Payable Specialist Name Role Phone Thao Jain CP Unavailable Encounters Encounter Location Date Unknown Thao Jain MD [place] Jul 14, 2014 Unknown Thao Jain MD [place] Jul 31, 2014 Unknown Thao Jain MD [place] Sep 19, 2014 Problems Problem Type Condition ICD-9 Code [...] Instructions Start Date End Date Status Dosage Digoxin MEDISPAN [address]-04 0.25 MG Orally Once a day Active 1 tablet Social History Social History Element Qualifiers Date Reported Smoking . Status Never Smoker Aug 27, 2014 Alcohol Use Yes. Occasionally Aug 27, 2014 Alcohol Screening: Yes. Aug 27, 2014 Marital Status: . Aug 27, 2014 Do you drink alcohol? Yes. 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
--- OUTSIDE RECORDS SUMMARY | 2018-10-09 05:24 | XMS REPORT | Summary of Care ---
Author Author [facility] Organization [facility] Address Unknown Phone Unavailable Encounter HQ Encntr_normanmaksim(DANIKA) [id number] Date(s): 10/03/16 - 10/03/16 [facility] [address] [place] [address]- Discharge Disposition: Home or Self Care Attending Physician: Galileo Reis DPM Referring Physician: Galileo Reis DPM Vital Signs No data available for this [...]
--- OUTSIDE RECORDS SUMMARY | 2018-10-09 05:24 | XMS REPORT | Summary of Care ---
Author Author [facility] Organization [facility] Address Unknown Phone Unavailable Encounter HQ Encntr_alias(FIN) [id number] Date(s): 01/09/18 - 01/09/18 [facility] [address] [place] [address]- [phone] Encounter Diagnosis Pulsatile tinnitus, right ear (Final) - 01/15/18 Abnormal findings on diagnostic imaging of other specified body structures (Final) - Occlusion and stenosis of left carotid artery (Final) - Discharge Disposition: Home or Self Care Attending Physician: Kalli Almanza MD Referring Physician: Kalli Almanza MD Vital Signs No data available for [...]
--- OUTSIDE RECORDS SUMMARY | 2018-10-09 05:24 | XMS REPORT | Summary of Care ---
Author Author [facility] Organization [facility] Address Unknown Phone Unavailable Encounter HQ Encntr_alias(FIN) [id number] Date(s): 03/15/18 - 03/15/18 [facility] [address] [place] [address]- Discharge Disposition: Home or Self Care Attending Physician: Rosemary Smith MD Referring Physician: Rosemary Smith MD Vital Signs No data available for [...]
--- OUTSIDE RECORDS SUMMARY | 2018-10-09 05:24 | XMS REPORT ---
Author Author Suzan Jain Organization [employer] Address Unknown Phone Unavailable Care Team Providers Care Dynamic Balancer Name Role Phone Suzan Jain Unavailable Allergies, [...] atrial fibrillation I48.2 Active Problem Atherosclerosis of [place] artery of right lower extremity with intermittent [...] Start Date End Date Status Dosage Fenofibrate ND 01936691139 160 MG Orally Once a day Active 1 tablet with a meal Lovaza NDC 79275882424 1 GM Orally Twice a day Active 2 capsules Digoxin ND 04190274618 125 MCG Orally Once a day Active 1 tablet Metoprolol Tartrate [facility] 26427812101 100 mg Orally twice a day (bid) Active 1/2 half tablet Losartan Potassium-HCTZ [facility] 93930206084 100-12.5 MG PO Once a day Active 1/2 half tablet Atorvastatin Calcium [facility] 56513483826 40 mg Orally Once a day Active 1 tablet Humalog [facility] 15466518841 100 UNIT/ML Subcutaneous Active not defined Lantus [facility] 86697281587 100 UNIT/ML Subcutaneous sliding scale Active 44 ml Lyrica [facility] 96387777646 50 mg Orally once a day Active 1 capsule Warfarin Sodium [facility] 23249712789 7.5 MG Orally Once a day Active 1 tablet Clonidine HCl [facility] 34612874430 0.1 MG PO twice a day (bid) Active 1 tablet Vital Signs Date/Time: Nov 29, 2016 BMI 31.31 Index Weight 194 lbs Height 66 in Temperature 97.6 F Cardiac Monitoring Heart Rate 54 /min Blood Pressure Diastolic 80 mm Hg Blood Pressure Systolic 134 mm Hg Results No Known Results Summary Purpose eClinicalWorks Submission
--- OUTSIDE RECORDS SUMMARY | 2018-10-09 05:24 | XMS REPORT | Summary of Care ---
Author Author [facility] Organization [facility] Address Unknown Phone Unavailable Encounter HQ Encntr_alias(FIN) [id number] Date(s): 03/17/18 - 03/17/18 [facility] [address] [place] [address]- Discharge Disposition: Home or Self Care Attending [...]
--- OUTSIDE RECORDS SUMMARY | 2018-10-09 05:24 | XMS REPORT ---
Author Author Thao Jain Organization [employer] Address Unknown Phone Unavailable Care Team Providers Care Chef De Cuisine Name Role Phone Thao Jain CP Unavailable Encounters Encounter Location Date Unknown Thao Jain MD [place] Oct 27, 2014 Unknown Thao Jain MD [place] Jul 14, 2014 Unknown Thao Jain MD [place] Jul 31, 2014 Unknown Thao Jain MD [place] Sep 19, 2014 Social History Social History Element Qualifiers Date Reported Smoking . Status Never Smoker Aug 27, 2014 Alcohol Use Yes. Occasionally Aug 27, 2014 Alcohol Screening: Yes. Aug 27, 2014 Marital Status: . Aug 27, 2014 Do you drink alcohol? Yes. 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
--- OUTSIDE RECORDS SUMMARY | 2018-10-09 05:24 | XMS REPORT | Summary of Care ---
Author Author [facility] Organization [facility] Address Unknown Phone Unavailable Encounter HQ Chio_mu(FIN) [id number] Date(s): 01/24/18 - 01/24/18 [facility] [address] [place] [address]- Encounter Diagnosis Pulsatile tinnitus, right ear (Final) - 01/30/18 Sensorineural hearing loss, bilateral (Final) - Discharge Disposition: Home or Self Care Attending Physician: Kalli Almanza MD Referring Physician: Kalli Almanza MD Vital Signs No data available for this section Problem List No data available for this section Allergies, Adverse Reactions, Alerts No data available for this section Medications No data available for this section Results CHEM PANEL Most recent to 1 oldest [Reference Range]: eGFR 47 mL/min/1.73m2 1 *NA* (01/24/18 9:29 AM) POC Creatinine 1.5 mg/dL [0.5-1.4 mg/dL] *HI* (01/24/18 9:29 AM) 1Result Comment: The eGFR is calculated using the [...] from the National Kidney Disease Education Program ( NKDEP) which additionally recommends that when the eGFR is used in patients with extremes of body mass index for purposes of drug dosing, the eGFR should be mul tiplied by the estimated BMI. Immunizations No data available for this section Procedures No data available for this section Social History No data available for this section Assessment and Plan No data available for this section
--- OUTSIDE RECORDS SUMMARY | 2018-10-09 05:24 | XMS REPORT ---
Author Author Thao Jain Organization [employer] Address Unknown Phone Unavailable Care Team Providers Care District Court Reporter Name Role Phone Thao Jain CP Unavailable Encounters Encounter Location Date Unknown Thao Jain MD [place] Jul 14, 2014 Unknown Thao Jain MD [place] Jul 31, 2014 Problems Problem Type Condition ICD-9 Code [...] Date End Date Status Dosage Metoprolol Tartrate [facility] [address]-92 100 mg Orally BID Active 1 tablet Social History Social History Element Qualifiers Date Reported Smoking . Status Never Smoker February 26, 2014 Alcohol Use Yes. Occasionally February 26, 2014 Alcohol Screening: Yes. February 26, 2014 Marital Status: . February 26, 2014 Do you drink alcohol? Yes. 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
--- OUTSIDE RECORDS SUMMARY | 2018-10-09 05:24 | XMS REPORT ---
Author Author Galileo Reis Organization [employer] Address Unknown Phone Unavailable Care Team Providers Care Color Checker Roving Or Yarn Name Role Phone Galileo Reis CP Unavailable Encounters Encounter Location Date Unknown Thao Jain MD [place] Oct 27, 2014 Unknown Thao Jain MD [place] January 06, 2015 Unknown Thao Jain MD [place] January 06, 2015 results [facility] Nov 08, 2016 Unknown Thao Jain MD [place] Jul 14, 2014 Unknown Thao Jain MD [place] Jul 31, 2014 Unknown Thao Jain MD [place] Sep 19, 2014 Problems Problem Type Condition ICD-9 Code Onset Dates Condition Status Problem Type 2 diabetes mellitus with diabetic peripheral angiopathy without gangrene, without long-term current use of insulin E11.51 Active Problem Ingrown toenail L60.0 Active Problem Peripheral arterial disease I73.9 Active Problem Diabetic mononeuropathy associated with type 2 diabetes mellitus E11.41 Active Social History Social History Element Qualifiers Date Reported Do you smoke? . Answer: No Sep 26, 2016 Do you drink alcohol? . 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
[2018-10-09 06:26] LABS: INR 1.2; PROTHROMBIN TIME 16.3 seconds (11.9-14.5)
[2018-10-09 06:27] LABS: PARTIAL THROMBOPLASTIN TIME 33.2 seconds (23.8-35.5)
[2018-10-09 07:45] VITALS: BP 104/72
== END | disposition home or self-care (01) ==
LOC: OR 05:20
PROVIDERS: ATTEND Internal Medicine Gastroenterology
DX: Z12.11 Encounter for screening for malignant neoplasm of colon (principal); D12.0 Benign neoplasm of cecum; D12.2 Benign neoplasm of ascending colon; D12.4 Benign neoplasm of descending colon; K57.30 Diverticulosis of large intestine without perforation or abscess without bleeding; R10.11 Right upper quadrant pain; R11.0 Nausea; K59.00 Constipation, unspecified; Z79.01 Long term (current) use of anticoagulants; I10 Essential (primary) hypertension; E78.5 Hyperlipidemia, unspecified; E11.9 Type 2 diabetes mellitus without complications; J45.909 Unspecified asthma, uncomplicated; Z79.4 Long term (current) use of insulin; Z95.0 Presence of cardiac pacemaker; K21.9 Gastro-esophageal reflux disease without esophagitis; K58.9 Irritable bowel syndrome, unspecified; G47.33 Obstructive sleep apnea (adult) (pediatric); Z01.810 Encounter for preprocedural cardiovascular examination; Z01.812 Encounter for preprocedural laboratory examination
CPT/HCPCS: 36415 ×2; 45384; 82948; 85025; 85610; 85730; 88305; 93005; J1980; J2250; 45378

== ENCOUNTER 2021-08-13 13:38 | Emergency (ER) | payer MEDICARE ==
[~2021-08-13] VITALS: Ht 167.6 cm; Wt 78.9 kg
[~2021-08-13 13:38] MED LIST changes: -FENTANYL CITRATE/PF 100MCG/2 ML INJ ONE; -HYOSCYAMINE SULFATE 0.5 MG/ML INJ ONE; -MIDAZOLAM HCL 2 MG/2 ML VIAL ONE; -PROPOFOL IV EMULSION 10 MG/ML 50 ML VIAL ONE
[2021-08-13 15:19] VITALS: BP 130/70
== END 2021-08-13 14:18 | disposition home or self-care (01) ==
LOC: ER 14:16
DX: I10 Essential (primary) hypertension (principal); E11.9 Type 2 diabetes mellitus without complications; E78.5 Hyperlipidemia, unspecified; I48.91 Unspecified atrial fibrillation
CPT/HCPCS: 99284